=== PATIENT | female | born 1985 | race Hispanic/Latino ===

== ENCOUNTER 2018-05-15 17:58 | Outpatient (CLI) | payer OTHER | END 2018-05-15 17:59 | LOC: LAB 17:58 | PROVIDERS: ATTEND Family Medicine | DX: N92.6 Irregular menstruation, unspecified (principal) | CPT/HCPCS: 84702 ==

== ENCOUNTER 2018-06-12 14:53 | Outpatient (CLI) | payer OTHER ==
--- NOTE | 2018-06-12 15:50 | ULT ---
RIGHT BREAST ULTRASOUND LIMITED: HISTORY: This 32-year-old female presents with a palpable finding in the upper outer right breast. FINDINGS: No mammographic abnormality was noted. The area from 9 o'clock to 12 o'clock was evaluated with ultr asound. No solid or cystic mass demonstrated. IMPRESSION: Unremarkable right breast ultrasound. BIRADS category 2, benign findings. If the patient develops any new palpable finding, consider followup breast ultrasound, also consider followup mammogram at age 35 to 40 depending upon risk factors. POS: OFF
== END 2018-06-12 14:54 | disposition home or self-care (01) ==
LOC: BICULT 14:53
PROVIDERS: ATTEND Family Medicine
DX: N63.10 Unspecified lump in the right breast, unspecified quadrant (principal); R92.1 Mammographic calcification found on diagnostic imaging of breast
CPT/HCPCS: 77066; G0279